=== PATIENT | female | born 1955 | race African-American/Black ===

== ENCOUNTER 2022-02-09 16:32 | Observation (INO) ==
[2022-02-09] MEDS ORDERED: HEPARIN LOCK FLUSH 500 UNIT/5 ML SYRINGE IV ONE (17:29)
[2022-02-09 18:47] LABS: Basophils % 0.4 % (0.0-0.8); Eosinophils # 0.3 10*3/uL (0.0-0.87); Hematocrit 42.9 VOL% (35.7-47.0); Hemoglobin 13.9 GM/DL (12.0-16.0); Immature Granulocytes % 0.2 %; Immature Granulocytes Absolute 0.02 #; Lymphocytes # 4.3 10*3/uL (1.4-4.0); Lymphocytes % 52.1 % (21.3-54.2); Mean Corpuscular HGB Conc 32.4 GM/DL (32-36); Mean Corpuscular Volume 88.8 FL (87-102); Mean Platelet Volume 11.5 FL (9.6-12.0); Monocytes % 9.7 % (1.7-12.7); Neutrophils % 34.6 % (38.7-73.9); Platelet Count 191 T/CUMM (130-400); Red Blood Count 4.83 MC/CUMM (3.8-5.5); Red Cell Distribution Width 14.7 % (9.3-17.3); White Blood Count 8.3 T/CUMM (4-12)
[2022-02-09 19:10] LABS: Albumin 3.1 G/DL (3.4-5.0); Bilirubin,Total 0.5 MG/DL (0.20-1.00); Calcium 8.8 MG/DL (8.5-10.1); Osmolality,Calculated 281.1 MOS/KG (273-304); Potassium 3.5 MMOL/L (3.5-5.1); Total Protein 6.8 G/DL (6.4-8.2)
[2022-02-09] MEDS ORDERED: oxyCODONE/ACETAMINOPHEN 5-325 MG TABLET PO STA (19:59)
[2022-02-09] MEDS ORDERED: ONDANSETRON 4 MG/2 ML VIAL IV PRN (20:54)
[2022-02-09] MEDS ORDERED: ACETAMINOPHEN 325 MG TABLET PO PRN (20:54)
[2022-02-09] MEDS ORDERED: MAGNESIUM SULF RIDER 2 GM/50 ML PREMIX IV PRN (20:54)
[2022-02-09] MEDS ORDERED: SIMETHICONE CHEW 125 MG TABLET PO PRN (20:54)
[2022-02-09] MEDS ORDERED: GLUCAGON 1 MG VIAL IM PRN (20:54)
[2022-02-09] MEDS ORDERED: MAGNESIUM SULF RIDER 4 GM/100 ML PREMIX IV PRN (20:54)
[2022-02-09] MEDS ORDERED: hydrALAZINE 20 MG/1 ML VIAL IV PRN (20:54)
[2022-02-09] MEDS ORDERED: POTASSIUM CHLORIDE 20 MEQ TABLET PO PRN (20:54)
[2022-02-09] MEDS ORDERED: POTASSIUM CHLORIDE RIDER 10 MEQ/100 ML PREMIX IV PRN (20:54)
[2022-02-09] MEDS ORDERED: DEXTROSE 10% 250 ML BAG IV PRN (21:12)
[2022-02-09] MEDS: INSULIN REGULAR 100 UNIT/ML SUBCUT SCH (21:45)
[2022-02-09] MEDS ORDERED: ELETRIPTAN 20 MG PO PRN (22:22)
[2022-02-09] MEDS ORDERED: oxyCODONE/ACETAMINOPHEN 5-325 MG TABLET PO PRN (22:48)
[2022-02-09] MEDS ORDERED: RIVAROXABAN 20 MG TABLET PO ONE (23:44)
[2022-02-10] MEDS: DOCUSATE SODIUM 100 MG CAPSULE PO SCH ×2 (02:51→09:25)
[2022-02-10] MEDS ORDERED: IPRATROPIUM 500 MCG/2.5 ML NEB RESP TX PRN (03:00)
[2022-02-10 04:13] LABS: Basophils # 0.1 10*3/uL (0.0-0.2); Basophils % 0.7 % (0.0-0.8); Eosinophils # 0.2 10*3/uL (0.0-0.87); Eosinophils % 3.1 % (0.00-10.9); Hemoglobin 12.1 GM/DL (12.0-16.0); Immature Granulocytes % 0.1 %; Immature Granulocytes Absolute 0.01 #; Lymphocytes % 57.2 % (21.3-54.2); Mean Corpuscular HGB Conc 32.7 GM/DL (32-36); Mean Corpuscular Volume 90.2 FL (87-102); Mean Platelet Volume 11.2 FL (9.6-12.0); Monocytes % 7.7 % (1.7-12.7); Neutrophils % 31.2 % (38.7-73.9); Platelet Count 152 T/CUMM (130-400); Red Cell Distribution Width 14.7 % (9.3-17.3)
[2022-02-10 04:31] LABS: Calcium 7.9 MG/DL (8.5-10.1); Potassium 3.1 MMOL/L (3.5-5.1); Risk Ratio 2.41; Thyroid Stimulating Hormone 2.4 uIU/ml (0.358-3.74); VLDL Cholesterol 9.8 MG/DL
[2022-02-10 04:42] LABS: Eosinophils 2 % (0-10); Lymphocytes 54 % (20-55); Platelet Estimate Adequate; Segmented Neutrophils 37 % (50-85); Total Cells Counted 100
[2022-02-10] MEDS ORDERED: amLODIPine 10 MG TABLET PO SCH (09:00)
[2022-02-10] MEDS ORDERED: ASCORBIC ACID 500 MG TABLET PO SCH (09:00)
[2022-02-10] MEDS ORDERED: FUROSEMIDE 40 MG TABLET PO SCH (09:00)
[2022-02-10] MEDS ORDERED: ATORVASTATIN 20 MG TABLET PO SCH (09:00)
[2022-02-10] MEDS ORDERED: PANTOPRAZOLE 40 MG TABLET PO SCH ×2 (09:00)
[2022-02-10] MEDS ORDERED: DIVALPROEX ER 500 MG TABLET PO SCH (09:00)
[2022-02-10] MEDS ORDERED: DAPAGLIFLOZIN 5 MG TABLET PO SCH (09:00)
[2022-02-10] MEDS ORDERED: MULTIVITAMIN (CENTRUM) TABLET PO SCH (09:00)
[2022-02-10] MEDS ORDERED: RIVAROXABAN 20 MG TABLET PO SCH (09:00)
[2022-02-10] MEDS ORDERED: LINACLOTIDE 145 MCG CAPSULE PO SCH (09:00)
[2022-02-10] MEDS ORDERED: FLUTICASONE/SALMETEROL 250-50 DISKUS 14 DOSE INH SCH (09:00)
[2022-02-10] MEDS ORDERED: carvediloL 6.25 MG TABLET PO SCH (09:00)
[2022-02-10] MEDS ORDERED: MONTELUKAST 10 MG TABLET PO SCH (09:00)
[2022-02-10] MEDS ORDERED: GABAPENTIN 300 MG CAPSULE PO SCH (09:00)
[2022-02-10] MEDS ORDERED: POTASSIUM CHLORIDE 10 MEQ TABLET PO SCH (09:00)
[2022-02-10] MEDS ORDERED: ASPIRIN EC 81 MG TABLET PO SCH (09:00)
[2022-02-10] MEDS: INSULIN REGULAR 100 UNIT/ML SUBCUT SCH (09:14)
[2022-02-10] MEDS: tiZANidine 4 MG TABLET PO SCH ×2 (09:31)
[2022-02-10 09:58] VITALS: BP 134/79
[2022-02-10] MEDS ORDERED: LATANOPROST 0.005% OPH SOLN 2.5 ML BOTTLE BOTH EYES SCH (21:00)
== END 2022-02-10 10:08 | disposition home or self-care (01) ==
LOC: N.ED 16:32 → N.EDINP 16:32
PROVIDERS: ADMIT Internal Medicine; ATTEND Internal Medicine